=== PATIENT | male | born 1995 | race Caucasian/White ===

== ENCOUNTER 2022-06-29 16:45 | Emergency (ER) | payer MEDICAID ==
[~2022-06-29] VITALS: Ht 172.7 cm; Wt 95.0 kg
[2022-06-29 16:48] VITALS: BP 134/98
[2022-06-29] MEDS ORDERED: IBUP-2029 MT (19:09)
[2022-06-29] MEDS ORDERED: IBUPROFEN 600MG TABLET PO ONE (19:15)
== END 2022-06-29 19:45 | disposition home or self-care (01) ==
LOC: ER 17:13
DX: S63.502A Unspecified sprain of left wrist, initial encounter (principal); W18.30XA Fall on same level, unspecified, initial encounter; Y93.89 Activity, other specified; Y92.89 Other specified places as the place of occurrence of the external cause; Y99.8 Other external cause status
CPT/HCPCS: 73110; 73130; 99284